=== PATIENT | male | born 1955 | race African-American/Black ===

== ENCOUNTER 2021-03-23 09:58 | Emergency (ER) | payer MEDICARE, MEDICAID ==
[~2021-03-23] VITALS: Ht 188 cm; Wt 102.0 kg
[~2021-03-23 09:58] MED LIST: DIPH25CA83 PO; IBUP-2030 PO; METF-414 PO
[2021-03-23 10:29] VITALS: BP 145/96
[2021-03-23] MEDS ORDERED: ACETAMINOPHEN 325MG TABLET PO ONE (11:00)
[2021-03-23] MEDS ORDERED: T3 PO (11:18)
[2021-03-23] MEDS ORDERED: ACYC200C31 MT (11:18)
== END 2021-03-23 11:41 | disposition home or self-care (01) ==
LOC: ER 09:58
DX: B02.9 Zoster without complications (principal); E11.9 Type 2 diabetes mellitus without complications; I10 Essential (primary) hypertension; Z88.0 Allergy status to penicillin
CPT/HCPCS: 99283